=== PATIENT | male | born 1970 | race Caucasian/White ===

== ENCOUNTER 2019-03-13 14:09 | Emergency (ER) | payer MEDICAID, OTHER ==
[~2019-03-13] VITALS: Ht 175.3 cm; Wt 83.9 kg
[2019-03-13 14:49] LABS: Basophils # (auto) 0.1 uL; Eosinophils # (auto) 0.3 uL; Eosinophils % (auto) 3.2 % (0.0-7.0); Hemoglobin 13.7 g/dL (13.5-17.5); Lymphocytes # (auto) 2.3 uL; Lymphocytes % (auto) 23.1 % (10.0-50.0); Mean Corpuscular Hemoglobin 29.9 pg (28.0-32.0); Mean Corpuscular Hgb Conc. 34.4 g/dL (32.0-36.0); Mean Corpuscular Volume 86.9 fL (80.0-100.0); Monocytes # (auto) 1.1 uL; Monocytes % (auto) 10.8 % (0.0-12.0); Neutrophils # (auto) 6.2 uL; Neutrophils % (auto) 61.9 % (37.0-80.0); Nucleated Red Blood Cells % 0.1 %; Platelet Count (auto) 245 10^3/uL (140-450)
[2019-03-13 14:56] LABS: Potassium 3.7 mmol/L (3.5-5.1)
[2019-03-13 14:59] LABS: Albumin 3.6 g/dL (3.4-5.0); Calcium 8.6 mg/dL (8.5-10.1)
[2019-03-13 15:00] LABS: Salicylate < 1.7 mg/dL (2.8-20.0)
[2019-03-13 15:02] LABS: BUN/Creatinine Ratio 15.3
[2019-03-13 15:03] LABS: Acetaminophen < 2.0 ug/mL (10-30)
[2019-03-13 15:05] LABS: Bilirubin, Total 0.5 mg/dL (0.2-1.0); Total Protein 7.8 g/dL (6.4-8.2)
[2019-03-13] MEDS ORDERED: diphenhdrAMINE HCL 50 MG/1 ML VL IM ONE (15:30)
[2019-03-13] MEDS ORDERED: HALOPERIDOL LACTATE 5 MG/ML INJ VIAL IM ONE (15:30)
[2019-03-13] MEDS ORDERED: LORazepam 2MG/ML-1ML VIAL IM ONE (15:30)
[2019-03-13 17:33] LABS: Alcohol, Urine < 3.0 mg/dL (0-5); Amphetamine Screen, Urine POSITIVE (NEGATIVE); Barbiturate Scree,Urine NEGATIVE (NEGATIVE); Benzodiazephine Screen, Urine POSITIVE (NEGATIVE); Cannabinoid Screen, Urine NEGATIVE (NEGATIVE); Cocaine Screen, Urine POSITIVE (NEGATIVE); Opiate Scree,Urine POSITIVE (NEGATIVE); Phencyclidine Screen, Urine NEGATIVE (NEGATIVE)
[2019-03-13] MEDS ORDERED: OLANZapine 5 MG TAB ONE (20:38)
[2019-03-14] MEDS ORDERED: OLANZapine 5 MG TAB PO ONE (10:00)
[2019-03-14] MEDS: OLANZapine 5 MG TAB PO SCH (21:49)
[2019-03-15] MEDS: OLANZapine 5 MG TAB PO SCH (09:43)
[2019-03-15] MEDS ORDERED: TEMAZEPAM 15 MG CAP PO ONE (22:30)
[2019-03-16] MEDS: OLANZapine 5 MG TAB PO SCH (10:32)
[2019-03-16 19:35] VITALS: BP 114/76
[2019-03-17] MEDS: OLANZapine 5 MG TAB PO SCH (10:10)
== END 2019-03-17 11:09 | disposition home or self-care (01) ==
LOC: ER 14:17
DX: R45.851 Suicidal ideations (principal); F41.9 Anxiety disorder, unspecified; F32.9 Major depressive disorder, single episode, unspecified
CPT/HCPCS: 36415; 80053; 80307; 80329; 85025; 96372; 99284; J1200; J1630; J2060